=== PATIENT | male | born 1950 | race Caucasian/White ===

== ENCOUNTER 2016-05-21 08:40 | Day surgery (SDC) | payer OTHER ==
[~2016-05-21] VITALS: Ht 190.5 cm; Wt 98.4 kg
--- NOTE | 2016-05-23 09:57 | OR ---
ADMIT: 05/21/2016 RM/LOC: [facility] MR#: [id number] [id number] DIDIER CUMMINGS [address] [place] [address] Operative/Delivery Room Report SEX: M AGE: 65 : 1950 SURGERY DATE: 05/21/2016 SURGEON: Virgilio Frey MD PREOPERATIVE DIAGNOSIS: Prostate cancer. POSTOPERATIVE DIAGNOSIS: Prostate cancer. PROCEDURE: Right internal jugular vein PowerPort insertion under ultrasound and fluoroscopic guidance. ANESTHESIA: IV general. DESCRIPTION OF PROCEDURE: The patient was taken to the operating room and placed supine on the operating room table. IV sedation was established. The neck and chest were prepped and draped in the standard surgical fashion. Local anesthetic was used to anesthetize the skin and subcutaneous tissue of the right neck and chest wall inferior to the right clavicle. The right internal jugular vein was identified with ultrasound. This was cannulated under ultrasound guidance with a large gauge needle. A guidewire was advanced under fluoroscopic visualization to the superior vena cava. A port pocket was then created in the subcutaneous tissue inferior to the right clavicle to allow snug positioning of the PowerPort. The catheter was tunneled from the port pocket to the needle insertion site and cut the appropriate length. The catheter was secured to the port with a cuff. The port was sutured on both sides to the subcutaneous tissue with 3-0 Prolene suture. The dilator and sheath were advanced over the guidewire under fluoroscopy. The guidewire and dilator were withdrawn. The catheter was deployed via the sheath and the sheath was removed. Fluoroscopy showed appropriate position of the catheter with the tip at the atrial caval junction and no evidence of kink. The port was accessed with a Rivers needle, aspirated easily, and flushed with heparinized saline. The deep tissue at the port pocket was approximated with 3-0 Vicryl suture. Skin edges were approximated with 4-0 Monocryl in a subcuticular fashion and Dermabond. A dressing was applied. Sponge, needle, and instrument counts were correct at the end of the case. The patient tolerated the procedure well and transferred to the recovery area in stable condition. Virgilio Frey MD/ jody JOB #: [id number] CC: Virgilio Frey, Attending Physician Mann Multani, Family Physician
== END 2016-05-21 13:45 | disposition home or self-care (01) ==
LOC: SSS 08:40
DX: C61 Malignant neoplasm of prostate (principal); K21.9 Gastro-esophageal reflux disease without esophagitis; Z88.6 Allergy status to analgesic agent; Z88.8 Allergy status to other drugs, medicaments and biological substances; Z79.899 Other long term (current) drug therapy